=== PATIENT | male | born 1985 | race Caucasian/White ===

== ENCOUNTER 2016-05-18 11:23 | Emergency (ER) | payer MEDICAID ==
[2010-04-25 15:09] VITALS: BMI 30.7
== END 2016-05-18 14:01 | disposition home or self-care (01) ==
LOC: D.ER 11:23
DX: L02.416 Cutaneous abscess of left lower limb (principal); L03.116 Cellulitis of left lower limb

== ENCOUNTER 2016-05-20 16:43 | Inpatient (IN) | payer MEDICAID ==
[~2016-05-20] VITALS: Ht 180.3 cm; Wt 93.0 kg
--- NOTE | 2016-05-20 17:05 | NUR ---
RECEIVED TO ROOM 2204 VIA DIRECT ADMIT FROM DR. LOYA'S OFFICE. A/O X3. WOUND TO LEFT UPPER THIGH IS [id number] WITH LARGE AREA OF REDNESS MARKED AROUND THE SITE. SUPPER SERVED IN ROOM. DENIES NEEDS AT THIS TIME.
[2016-05-20 17:08] VITALS: BP 148/65; BMI 28.6
--- NOTE | 2016-05-20 20:45 | NUR ---
PATIENT SITTING UP IN BED. NO SIGNS OF DISTRESS NOTED. ASSESSMENT COMPLETED. DENIES ANY NEEDS AT THIS TIME. DRESSING APPLIED TO WOUND AT PATIENTS REQUEST. NO OTHER NEEDS VOICED AT THIS TIME. BED LOW. CALL LIGHT IN REACH.
[2016-05-20 21:00] VITALS: BP 134/53
[2016-05-21 01:00] VITALS: BP 128/55
--- NOTE | 2016-05-21 01:55 | NUR ---
PATIENT UP IN CHAIR TALKING ON THE PHONE. NO VISIBLE SIGNS OF DISTRESS. BED IN LOWEST POSITION AND CALL LIGHT WITHIN REACH.
--- NOTE | 2016-05-21 04:17 | NUR ---
PATIENT RESTING IN BED. I ADJUSTED THE PATIENT'S PILLOWS PER HER REQUEST. PATIENT DENIES OTHER NEEDS AT THIS TIME. BED IN LOWEST POSITION AND CALL LIGHT WITHIN REACH.
[2016-05-21 05:00] VITALS: BP 121/73
--- NOTE | 2016-05-21 07:45 | NUR ---
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
--- NOTE | 2016-05-21 10:30 | NUR ---
PT STATES FRIENDS CHILD HAD BEEN PLAYING WITH SANATIZER CONTAINER AND HE FOUND IT IN ROOM.CONTAINER LEAKING WITH MINIMAL AMOUNT NOTED IN BOOTLE.TOOK OUT OF ROOM AND THREW IN TRASH.
[2016-05-21 10:31] VITALS: Ht 180.3 cm; Wt 93.0 kg
[2016-05-21 11:04] VITALS: BP 114/43
[2016-05-21 11:48] VITALS: BP 115/64
--- NOTE | 2016-05-21 12:30 | NUR ---
REQUEST PAIN MEDS WHEN TIME.
[2016-05-21 12:44] LABS: BASOPHILS 0.8 % (0.0-2.0); EOSINOPHILS 8.2 % (0-7); HEMATOCRIT 44.4 % (42.0-54.0); HEMOGLOBIN 14.7 g/dL (13.5-17.5); IMMATURE GRANULOCYTES 0.5 % (0-5); LYMPHOCYTES 34.5 % (15-50); MCH 30.4 pg (26.0-34.0); MCHC 33.1 g/dL (31.0-37.0); MCV 91.9 fL (80.0-100.0); MEAN PLATELET VOLUME 9.3 fL (7.4-10.4); MONOCYTES 10.3 % (2-11); NEUTROPHILS 45.7 % (40-80); PLATELET COUNT 349 10x3/uL (130-400); RBC 4.83 10x6/uL (4.20-6.10); WBC 6.5 10x3/uL (4.8-10.8)
[2016-05-21 13:09] LABS: ALBUMIN 3.6 g/dL (3.4-5.0); ALKALINE PHOSPHATASE 90 U/L (46-116); ALT (SGPT) 37 U/L (10-68); BILIRUBIN - TOTAL 0.26 mg/dL (0.2-1.3); CALC OSMOLALITY 286 mosm/kg (275-300); CALCIUM 8.9 mg/dL (8.5-10.1); CARBON DIOXIDE 33.9 mmol/L (21.0-32.0); CHLORIDE - SERUM 105 mmol/L (98-107); CREATININE - SERUM 1.1 mg/dL (0.6-1.3); GLUCOSE 111 mg/dL (74-106); POTASSIUM - SERUM 4.3 mmol/L (3.5-5.1); PROTEIN - SERUM 6.8 g/dL (6.4-8.2); SODIUM 143 mmol/L (136-145); UREA NITROGEN 14 mg/dL (7-18); eGFR NON AFRICAN AMERICAN 82 mL/min (90-120)
--- NOTE | 2016-05-21 13:45 | NUR ---
IV BEEPING AND PT RESTING VERY SOUNDLY.ALLOWED TO SLEEP
[2016-05-21 13:53] LABS: UDS - AMPHET POSITIVE QUAL (NEGATIVE); UDS - BARB NEGATIVE QUAL (NEGATIVE); UDS - BENZO POSITIVE QUAL (NEGATIVE); UDS - COCAINE POSITIVE QUAL (NEGATIVE); UDS - METH NEGATIVE QUAL (NEGATIVE); UDS - OPIATE POSITIVE QUAL (NEGATIVE); UDS - PCP NEGATIVE QUAL (NEGATIVE); UDS - THC POSITIVE QUAL (NEGATIVE)
[2016-05-21 16:35] VITALS: BP 115/64
--- NOTE | 2016-05-21 18:46 | NUR ---
REMAINS WITHOUT NEEDS,WITHOUT DISTRESS.CONT PLAN OF CARE
[2016-05-21 20:48] VITALS: BP 110/51
--- NOTE | 2016-05-21 21:30 | NUR ---
EYES CLOSED.RESP EVEN AND UNLABORED. NO DISTRESS NOTED. CL IN REACH.
[2016-05-22 00:18] VITALS: BP 107/56
--- NOTE | 2016-05-22 00:41 | NUR ---
EYES CLOSED RESP EVEN AND UNLABORED. NO DISTRESS NOTED. CL IN REACH.
--- NOTE | 2016-05-22 03:23 | NUR ---
RN NOTE: PT RESTING IN SUPINE POSITION WITH EYES CLOSED AND UNLABORED BREATHING. WILL CONTINUE TO MONITOR FOR NEEDS.
[2016-05-22 04:27] VITALS: BP 119/64
--- NOTE | 2016-05-22 05:56 | NUR ---
AROUSE EASLILY TO VERBAL STIMULI. NO COMPLAITNS VOICED. NO CHANGE IN ASSESSMENT.
[2016-05-22 06:33] LABS: BASOPHILS 0.4 % (0.0-2.0); HEMATOCRIT 45.9 % (42.0-54.0); HEMOGLOBIN 15.2 g/dL (13.5-17.5); IMMATURE GRANULOCYTES 0.4 % (0-5); LYMPHOCYTES 26.6 % (15-50); MCH 30.2 pg (26.0-34.0); MCHC 33.1 g/dL (31.0-37.0); MCV 91.1 fL (80.0-100.0); MEAN PLATELET VOLUME 9.6 fL (7.4-10.4); NEUTROPHILS 50.6 % (40-80); PLATELET COUNT 347 10x3/uL (130-400); RBC 5.04 10x6/uL (4.20-6.10); RDW 14.1 % (11.5-14.5); WBC 6.9 10x3/uL (4.8-10.8)
[2016-05-22 06:40] LABS: ALBUMIN 3.3 g/dL (3.4-5.0); ALKALINE PHOSPHATASE 84 U/L (46-116); ALT (SGPT) 36 U/L (10-68); CALC OSMOLALITY 279 mosm/kg (275-300); CALCIUM 8.9 mg/dL (8.5-10.1); CARBON DIOXIDE 32.6 mmol/L (21.0-32.0); CHLORIDE - SERUM 103 mmol/L (98-107); GLUCOSE 112 mg/dL (74-106); POTASSIUM - SERUM 4.1 mmol/L (3.5-5.1); PROTEIN - SERUM 6.7 g/dL (6.4-8.2); SODIUM 140 mmol/L (136-145); UREA NITROGEN 12 mg/dL (7-18); eGFR NON AFRICAN AMERICAN > 90 mL/min (90-120)
--- NOTE | 2016-05-22 07:58 | NUR ---
AWAKE AND ALERT. ORIENTED X3. LUNGS ARE CLEAR BILATERALLY, NO COUGH NOTED. SKIN IS INTACT WITHOUT EXCEPT WOUND TO LEFT THIGH WHICH HAS A DRY INTACT DRESSING IN PLACE. NOTED DECREASED REDNESS AND WARMTH TO WOUND AREA. IV TO LEFT FOREARM PATENT WITHOUT REDNESS AT INSERTION SITE. REPORTS NO BM SINCE ADMIT.
[2016-05-22 08:07] VITALS: BP 104/53
--- NOTE | 2016-05-22 08:30 | NUR ---
REQUESTED AND GIVEN ONE HYDROCODONE PO FOR C/O LEFT THIGH PAIN LEVEL 5. WILL MONITOR.
--- NOTE | 2016-05-22 10:00 | NUR ---
UP TO SHOWER PER SELF. DRESSING CHANGED TO LEFT THIGH. NO C/O PAIN AT THIS TIME.
[2016-05-22 11:56] VITALS: BP 105/50
[2016-05-22 15:37] VITALS: BP 112/64
--- NOTE | 2016-05-22 17:45 | NUR ---
ATE ALL OF SUPPER. REQUESTED AND GIVEN ONE HYDROCODONE PO FOR C/O LEFT THIGH PAIN LEVEL 7. WILL MONITOR. NO CHANGES NOTED.
[2016-05-22 20:00] VITALS: BP 158/92
--- NOTE | 2016-05-22 20:00 | NUR ---
ASSESSMENT COMPLETED, NO ACUTE DISTRESS NOTED, DSG TO L THIGH CDI, C/O PAIN 07/23 WILL TX WITH PRN MOTRIN, DENIES FURTHER NEEDS, SR'S UP, CL IN REACH, WILL MONITOR
--- NOTE | 2016-05-22 22:34 | NUR ---
MEDS GIVEN PER MAR, RYAN WELL, DENIES NEEDS, FALL AND CONTACT PRECAUTIONS IN PLACE, CL IN REACH
[2016-05-23 05:42] LABS: BASOPHILS 1.1 % (0.0-2.0); EOSINOPHILS 11.4 % (0-7); HEMATOCRIT 46.9 % (42.0-54.0); HEMOGLOBIN 15.8 g/dL (13.5-17.5); IMMATURE GRANULOCYTES 0.6 % (0-5); LYMPHOCYTES 38.4 % (15-50); MCH 30.3 pg (26.0-34.0); MCHC 33.7 g/dL (31.0-37.0); MEAN PLATELET VOLUME 9.3 fL (7.4-10.4); MONOCYTES 14.8 % (2-11); NEUTROPHILS 33.7 % (40-80); PLATELET COUNT 344 10x3/uL (130-400); RBC 5.21 10x6/uL (4.20-6.10); RDW 13.7 % (11.5-14.5); WBC 7.1 10x3/uL (4.8-10.8)
[2016-05-23 06:07] LABS: ALBUMIN 3.4 g/dL (3.4-5.0); ALKALINE PHOSPHATASE 94 U/L (46-116); BILIRUBIN - TOTAL 0.19 mg/dL (0.2-1.3); CALC OSMOLALITY 282 mosm/kg (275-300); CALCIUM 9.1 mg/dL (8.5-10.1); CARBON DIOXIDE 30.4 mmol/L (21.0-32.0); CHLORIDE - SERUM 105 mmol/L (98-107); CREATININE - SERUM 0.9 mg/dL (0.6-1.3); GLUCOSE 104 mg/dL (74-106); POTASSIUM - SERUM 3.8 mmol/L (3.5-5.1); PROTEIN - SERUM 6.8 g/dL (6.4-8.2); SODIUM 142 mmol/L (136-145); UREA NITROGEN 12 mg/dL (7-18); eGFR NON AFRICAN AMERICAN > 90 mL/min (90-120)
[2016-05-23 06:46] LABS: ALT (SGPT) 55 U/L (10-68)
--- NOTE | 2016-05-23 08:05 | NUR ---
PT. AOX4 RESP EVEN AND NONLABORED SKIN PINK WITH WOUND COVERED ON LEFT THIGH ABD SOFT AND NONTENDER WITH [id number] BED AT LOWEST SETTING IV SITE ON RIGHT FA CLEAN PATENT AND INTACT. BED AT LOWEST SETTING AND CALL LIGHT WITHIN REACH
[2016-05-23 08:55] VITALS: BP 113/70
[2016-05-23 10:20] LABS: HEPATITIS C ANTIBODY <0.1 (0.0-0.9)
--- NOTE | 2016-05-23 11:23 | NUR ---
REQUESTED AND GIVNE ONE HYDROCODONE PO FOR C/O LEFT THIGH LEVEL 5. WILL MONITOR. DRESSING CHANGED TO SAME
[2016-05-23] MEDS ORDERED: CLEOCIN HCL300 MG PO (13:24)
--- NOTE | 2016-05-23 15:05 | NUR ---
Patient Name: JADA MACARIO Admission Status: Elective Admission Date: 05-21-2016 : 1985 Admission Diagnosis:CUTANEOUS ABSCESS OF LEFT LOWER LIMB Attending: ROCK Current LOS: 2 Anticipated DC Date: 05-23-2016 Planned Disposition: Home Primary Insurance: [employer] [place] [employer] EFR[employer] Discharge Planning Comments: CM met with patient to discuss discharge planning/needs. The patient's plan is to discharge home with his grandmother "Miryam Macario" ([phone]) who he states will manage his dressing changes if needed. He states he is independent of all ADL's and declines the need for HH/DME equipment at this time. His grandmother will be his transportation home at discharge. He states his new PCP is Dr. Chang and he uses [facility] ([place][phone]". CM to follow and continue to assist with discharge planning/needs. Farm Operator: Deepti Campbell Is the patient Alert and Oriented? Yes 0 * PCP Patient states he has just started seeing Dr. Chang. CM unsure if 1st visit has been made at this time. 0 * [facility] ([place]) [phone] * Preadmission Environment Home Alone 0 * ADLs Independent 0 * Equipment None 0 * List name and contact numbers for known caregivers / representatives who currently or will assist patient after discharge: Miryam Macario (pts. grandmother) [phone] 0 * Community resources currently utilized None 0 * Additional services required to return to the preadmission environment? No 0 * Can the patient safely return to the preadmission environment? Yes 0 * Has this patient been hospitalized within the prior 30 days at any hospital? No 0 Grand Total: 0
--- NOTE | 2016-05-23 17:43 | NUR ---
IV CATHETER REMOVED INTACT. PT. DISCHARGED VIA WHEELCHAIR AT THIS TIME.
[2016-05-24 10:13] LABS: HEPATITIS BE ANTIGEN Negative (Negative)
== END 2016-05-23 17:49 | disposition home or self-care (01) | DRG 603 ==
LOC: D.MS 16:43 → EDSTATUS 16:44 → D.MS 16:44 → OBSVTIME 16:44 → D.MS 16:44
PROVIDERS: Family Medicine Adult Medicine; Student in an Organized Health Care Education/Training Program; ADMIT Family Medicine
DX: L02.416 Cutaneous abscess of left lower limb (principal); L03.116 Cellulitis of left lower limb; B95.62 Methicillin resistant Staphylococcus aureus infection as the cause of diseases classified elsewhere

== ENCOUNTER 2016-07-18 22:01 | Emergency (ER) | payer MEDICAID ==
[2016-05-21 10:31] VITALS: BMI 28.6
[~2016-07-18 22:01] MED LIST: CLEOCIN HCL300 MG PO
[2016-07-18 23:08] LABS: BASOPHILS 0.3 % (0-2); EOSINOPHILS 2.1 % (0-7); HEMATOCRIT 46.9 % (42.0-54.0); HEMOGLOBIN 16.1 g/dL (13.5-17.5); IMMATURE GRANULOCYTES 0.3 % (0-5); LYMPHOCYTES 15.3 % (15-50); MCH 30.8 pg (26.0-34.0); MCHC 34.3 g/dL (31.0-37.0); MCV 89.8 fL (80.0-100.0); MEAN PLATELET VOLUME 9.5 fL (7.4-10.4); PLATELET COUNT 391 10x3/uL (130-400); RBC 5.22 10x6/uL (4.20-6.10); RDW 13.5 % (11.5-14.5); WBC 17.3 10x3/uL (4.8-10.8)
[2016-07-18 23:11] LABS: ALBUMIN 3.6 g/dL (3.4-5.0); ALKALINE PHOSPHATASE 96 U/L (46-116); ALT (SGPT) 29 U/L (10-68); CALC OSMOLALITY 287 mosm/kg (275-300); CALCIUM 8.7 mg/dL (8.5-10.1); CARBON DIOXIDE 30.3 mmol/L (21.0-32.0); CHLORIDE - SERUM 106 mmol/L (98-107); GLUCOSE 120 mg/dL (74-106); POTASSIUM - SERUM 3.2 mmol/L (3.5-5.1); PROTEIN - SERUM 7.4 g/dL (6.4-8.2); SODIUM 145 mmol/L (136-145); UREA NITROGEN 7 mg/dL (7-18); eGFR NON AFRICAN AMERICAN > 90 mL/min (90-120)
[2016-07-18 23:12] LABS: CREATINE KINASE 73 UL (21-232); MAGNESIUM - SERUM 1.8 mg/dL (1.8-2.4)
[2016-07-18 23:15] LABS: TROPONIN-I < 0.017 ng/mL (0.000-0.060)
[2016-07-19 01:47] LABS: APPEARANCE CLEAR (CLEAR); BILIRUBIN NEGATIVE (NEGATIVE); COLOR YELLOW (YELLOW); GLUCOSE NEGATIVE (NEGATIVE); KETONE NEGATIVE (NEGATIVE); LEUKOCYTE ESTERASE NEGATIVE (NEGATIVE); NITRITE NEGATIVE (NEGATIVE); PROTEIN NEGATIVE (NEGATIVE); UROBILINOGEN NORMAL (NORMAL)
[2016-07-19 01:55] LABS: UDS - AMPHET POSITIVE QUAL (NEGATIVE); UDS - BARB NEGATIVE QUAL (NEGATIVE); UDS - BENZO POSITIVE QUAL (NEGATIVE); UDS - COCAINE NEGATIVE QUAL (NEGATIVE); UDS - METH NEGATIVE QUAL (NEGATIVE); UDS - OPIATE NEGATIVE QUAL (NEGATIVE); UDS - PCP NEGATIVE QUAL (NEGATIVE); UDS - THC POSITIVE QUAL (NEGATIVE)
== END 2016-07-19 05:30 | disposition home or self-care (01) ==
LOC: D.ER 22:01
PROVIDERS: Emergency Medicine
DX: F41.9 Anxiety disorder, unspecified (principal); F15.10 Other stimulant abuse, uncomplicated; F10.10 Alcohol abuse, uncomplicated; E87.6 Hypokalemia; F17.200 Nicotine dependence, unspecified, uncomplicated; F15.90 Other stimulant use, unspecified, uncomplicated